=== PATIENT | male | born 1955 | race African-American/Black ===

== ENCOUNTER 2022-02-16 14:43 | Emergency (ER) | payer MEDICAID, OTHER ==
[~2022-02-16] VITALS: Ht 185.4 cm; Wt 105.0 kg
[~2022-02-16 14:43] MED LIST: CHEMO
[2022-02-16 15:01] VITALS: BP 98/71
[2022-02-16] MEDS ORDERED: GUAIFENESIN 600MG ER TABLET PO ONE (20:00)
[2022-02-16] MEDS ORDERED: ACETAMINOPHEN 325MG TABLET PO ONE (20:00)
[2022-02-16] MEDS ORDERED: ACET-2708 MT (20:12)
[2022-02-16] MEDS ORDERED: GUAI600T26 MT (20:12)
== END 2022-02-16 20:33 | disposition home or self-care (01) ==
LOC: ER 14:43
DX: J32.9 Chronic sinusitis, unspecified (principal); I10 Essential (primary) hypertension
CPT/HCPCS: 99282